=== PATIENT | female | born 1950 | race Hispanic/Latino ===

== ENCOUNTER → 2022-05-30 | Outpatient (CLI) | payer MEDICARE ==
[~2022-05-30] MED LIST: ATOR20TA65 PO; DAPA10TA PO; ESCI-8 PO; FINE10TA PO; GLIP1TAB5 PO; LISI40TA9 PO; VERA240T95 PO; VIT1CAPS47 PO
== END | disposition home or self-care (01) ==
LOC: RAH 13:00
PROVIDERS: ATTEND Orthopaedic Surgery
DX: M17.11 Unilateral primary osteoarthritis, right knee (principal); M25.761 Osteophyte, right knee; Z98.890 Other specified postprocedural states
CPT/HCPCS: 73700

== ENCOUNTER 2022-05-31 05:47 | Observation (INO) | payer MEDICARE ==
[2022-05-25 10:58] LABS: BASOPHILS % (AUTO) 0.6 % (0.0-5.0); EOSINOPHILS % (AUTO) 2.3 % (0.0-8.0); HEMATOCRIT 41.1 % (36-48); LYMPHOCYTES % (AUTO) 19.7 % (21.0-51.0); MEAN CORPUSCULAR HEMOGLOBIN 25.4 pg (27.0-33.0); MEAN CORPUSCULAR HGB CONC 30.2 g/dL (32.0-36.0); MONOCYTES % (AUTO) 6.1 % (3.0-13.0); NEUTROPHILS % (AUTO) 70.8 % (40.0-77.0); PLATELET COUNT (AUTO) 239 K/uL (130-400); RED BLOOD CELL COUNT(AUTO) 4.89 MIL/uL (4.00-5.50); RED CELL DISTRIBUTION WIDTH 14.6 % (11.0-15.5); WHITE BLOOD COUNT (AUTO) 7.9 K/uL (4.8-10.8)
[2022-05-25 11:04] LABS: CREATININE 1.3 mg/dL (0.5-1.5); POTASSIUM 5.8 mmol/L (3.5-5.1)
[2022-05-25 11:31] VITALS: BP 160/86
[~2022-05-31] VITALS: Ht 160 cm; Wt 87.8 kg
[2022-05-31] VITALS (28 sets, daily range): BP systolic 101–162; BP diastolic 49–75
[~2022-05-31 05:47] MED LIST changes: +LACTATED RINGERS 1000ML 1,000 ML IV SCH; +TRANEXAMIC ACID 1000MG/10ML ONE
[2022-05-31] MEDS: CEFAZOLIN SODIUM 1 GM VIAL IVPB SCH ×2 (06:00→08:52)
[2022-05-31 06:54] LABS: INR 0.93 (0.85-1.15); PROTHROMBIN TIME 9.8 SEC (9.6-11.6)
[2022-05-31 06:55] LABS: PARTIAL THROMBOPLASTIN TIME 29.3 SEC (26.3-35.5)
[2022-05-31] MEDS ORDERED: 0.9%NACL 1000ML 1,000 ML IV ONE (07:06)
[2022-05-31 07:27] LABS: CREATININE 1.3 mg/dL (0.5-1.5); POTASSIUM 5.5 mmol/L (3.5-5.1)
[2022-05-31] MEDS ORDERED: KCL 20 MEQ ERTAB PO PRN (08:00)
[2022-05-31] MEDS ORDERED: POTASSIUM CHLORIDE 20MEQ/100ML 100 ML IV PRN (08:00)
[2022-05-31] MEDS: METFORMIN HCL 500 MG TABLET PO SCH ×2 (08:00→17:00)
[2022-05-31] MEDS ORDERED: HYDROCODONE/ACETAMINOPHEN 5/325 MG TAB PO PRN (08:00)
[2022-05-31] MEDS ORDERED: POTASSIUM CHLORIDE 10% ELIXIR 20 MEQ/15 ML UDCUP PO PRN (08:00)
[2022-05-31] MEDS ORDERED: LIDOCAINE HCL-MPF 1% 2ML VIAL IV PRN (08:00)
[2022-05-31] MEDS: GLIPIZIDE 5 MG TABLET PO SCH ×2 (08:00→17:00)
[2022-05-31] MEDS ORDERED: ONDANSETRON 4MG INJ IVP PRN (08:00)
[2022-05-31] MEDS ORDERED: ONDANSETRON 4MG INJ ONE (08:09)
[2022-05-31] MEDS ORDERED: LIDOCAINE HCL-MPF 1% 5ML AMP IJ ONE (08:09)
[2022-05-31] MEDS ORDERED: EPHEDRINE SULFATE 50 MG/ML AMPULE ONE (08:09)
[2022-05-31] MEDS ORDERED: ROCURONIUM 10MG/1ML SYR 10 MG/ML ML ONE (08:09)
[2022-05-31] MEDS ORDERED: PHENYLEPHRINE HCL 10 MG/ML 1ML VIAL IV ONE (08:09)
[2022-05-31] MEDS ORDERED: GLYCOPYRROLATE 1 MG/5 ML SYRINGE ONE (08:09)
[2022-05-31] MEDS ORDERED: PROPOFOL 10 MG/ML 20ML VIAL IV ONE (08:09)
[2022-05-31] MEDS ORDERED: FENTANYL CITRATE PF 50 MCG/1 ML 2ML VIAL ONE ×3 (08:10→11:39)
[2022-05-31] MEDS: ***HM*** (Dapagliflozin Propanediol (Farxiga) 10 MG) PO SCH (09:00)
[2022-05-31] MEDS: FINERENONE 10 MG PO SCH (09:00)
[2022-05-31] MEDS: CITALOPRAM 20 MG TABLET PO SCH (09:00)
[2022-05-31] MEDS: LISINOPRIL 40 MG TABLET PO SCH (09:00)
[2022-05-31] MEDS: ASPIRIN 81 MG EC TAB PO SCH ×2 (09:00→21:06)
[2022-05-31] MEDS: POLYETHYLENE GLYCOL 3350 17 GM POWD.PACK PO SCH (09:00)
[2022-05-31] MEDS: ***HM***(Vit C/E/Zn/Coppr/Lutein/Zeaxan (Preservision Areds 2 Soft PO SCH ×2 (09:00→21:00)
[2022-05-31] MEDS: VERAPAMIL HCL 240 MG SRTAB PO SCH (09:00)
[2022-05-31] MEDS: FAMOTIDINE 20MG TAB PO SCH ×2 (09:00→21:06)
[2022-05-31] MEDS ORDERED: IBUPROFEN 800MG + NS 250ML IV SCH (11:00)
[2022-05-31] MEDS: INSULIN HUMULIN R 100 UNIT/ML 3ML SQ SCH ×3 (11:30→21:00)
[2022-05-31] MEDS ORDERED: MEPERIDINE-PF 25 MG/ML SYG ONE (12:00)
[2022-05-31] MEDS: TRANEXAMIC ACID 1000MG/10ML IV SCH ×2 (12:21→12:23)
[2022-05-31] MEDS: ACETAMINOPHEN 1,000 MG/100 ML VIAL IV SCH ×2 (12:24→18:02)
[2022-05-31] MEDS: CEFAZOLIN SODIUM 1 GM VIAL IVP SCH ×2 (13:20→21:06)
[2022-05-31] MEDS: MORPHINE 4 MG SYG IVP PRN (13:20)
[2022-05-31] MEDS: 0.9%NACL 1000ML 1,000 ML IV SCH ×2 (14:11→18:00)
[2022-05-31] MEDS ORDERED: ACETAMINOPHEN 1,000 MG/100 ML VIAL IV SCH (23:30)
[2022-05-31] MEDS ORDERED: 0.9% NACL 250ML 250 ML ONE (23:40)
[2022-06-01] MEDS ORDERED: IBUPROFEN 800MG + NS 250ML IV SCH
[2022-06-01 04:39] VITALS: BP 123/52
[2022-06-01 04:43] LABS: MEAN CORPUSCULAR HEMOGLOBIN 25.8 pg (27.0-33.0); MEAN CORPUSCULAR VOLUME 83.1 fL (79-99); RED BLOOD CELL COUNT(AUTO) 3.61 MIL/uL (4.00-5.50); RED CELL DISTRIBUTION WIDTH 14.7 % (11.0-15.5); WHITE BLOOD COUNT (AUTO) 9.7 K/uL (4.8-10.8)
[2022-06-01 04:57] LABS: CREATININE 1.4 mg/dL (0.5-1.5); POTASSIUM 4.8 mmol/L (3.5-5.1)
[2022-06-01] MEDS: HYDROCODONE/ACETAMINOPHEN 10/325 MG TAB PO PRN ×3 (05:47→18:04)
[2022-06-01] MEDS: INSULIN HUMULIN R 100 UNIT/ML 3ML SQ SCH ×4 (05:55→20:06)
[2022-06-01] MEDS: 0.9%NACL 1000ML 1,000 ML IV SCH ×2 (06:47→07:34)
[2022-06-01 07:46] VITALS: BP 126/54
[2022-06-01] MEDS ORDERED: ROPIVICAINE 250MG+KETOROLAC 15MG+EPINEPHRINE 0.3+CLONIDINE 80 IV PRN ×5 (08:00)
[2022-06-01] MEDS: METFORMIN HCL 500 MG TABLET PO SCH ×2 (08:00→18:03)
[2022-06-01] MEDS: GLIPIZIDE 5 MG TABLET PO SCH ×2 (08:00→18:03)
[2022-06-01] MEDS: POLYETHYLENE GLYCOL 3350 17 GM POWD.PACK PO SCH (08:39)
[2022-06-01] MEDS: FAMOTIDINE 20MG TAB PO SCH ×2 (08:40→20:00)
[2022-06-01] MEDS: ASPIRIN 81 MG EC TAB PO SCH ×2 (08:48→20:00)
[2022-06-01] MEDS: VERAPAMIL HCL 240 MG SRTAB PO SCH (08:49)
[2022-06-01] MEDS: ***HM*** (Dapagliflozin Propanediol (Farxiga) 10 MG) PO SCH (08:49)
[2022-06-01] MEDS: FINERENONE 10 MG PO SCH (08:49)
[2022-06-01] MEDS: CITALOPRAM 20 MG TABLET PO SCH (08:49)
[2022-06-01] MEDS: ***HM***(Vit C/E/Zn/Coppr/Lutein/Zeaxan (Preservision Areds 2 Soft PO SCH ×2 (08:50→20:02)
[2022-06-01] MEDS: LISINOPRIL 40 MG TABLET PO SCH (08:52)
[2022-06-01 11:24] VITALS: BP 109/72
[2022-06-01] MEDS: MORPHINE 4 MG SYG IVP PRN (13:05)
[2022-06-01 16:47] VITALS: BP 114/44
[2022-06-01 19:04] VITALS: BP 138/63
[2022-06-01] MEDS: FERROUS GLUCONATE 324 TABLET PO SCH (20:00)
[2022-06-01 23:24] VITALS: BP 141/71
[2022-06-02 04:15] VITALS: BP 147/65
[2022-06-02] MEDS: HYDROCODONE/ACETAMINOPHEN 10/325 MG TAB PO PRN ×2 (04:27→08:53)
[2022-06-02] MEDS: INSULIN HUMULIN R 100 UNIT/ML 3ML SQ SCH (06:05)
[2022-06-02 07:56] VITALS: BP 146/66
[2022-06-02] MEDS: FAMOTIDINE 20MG TAB PO SCH (08:58)
[2022-06-02] MEDS: GLIPIZIDE 5 MG TABLET PO SCH (08:58)
[2022-06-02] MEDS: FERROUS GLUCONATE 324 TABLET PO SCH (08:59)
[2022-06-02] MEDS: CITALOPRAM 20 MG TABLET PO SCH (08:59)
[2022-06-02] MEDS: LISINOPRIL 40 MG TABLET PO SCH (08:59)
[2022-06-02] MEDS: METFORMIN HCL 500 MG TABLET PO SCH (08:59)
[2022-06-02] MEDS: ***HM***(Vit C/E/Zn/Coppr/Lutein/Zeaxan (Preservision Areds 2 Soft PO SCH (09:00)
[2022-06-02] MEDS: POLYETHYLENE GLYCOL 3350 17 GM POWD.PACK PO SCH (09:00)
[2022-06-02] MEDS: FINERENONE 10 MG PO SCH (09:00)
[2022-06-02] MEDS: VERAPAMIL HCL 240 MG SRTAB PO SCH (09:00)
[2022-06-02] MEDS: ***HM*** (Dapagliflozin Propanediol (Farxiga) 10 MG) PO SCH (09:00)
[2022-06-02] MEDS: ASPIRIN 81 MG EC TAB PO SCH (09:03)
[2022-06-02 11:38] VITALS: BP 125/50
[2022-06-03] MEDS ORDERED: BISACODYL 10 MG SUPP.RECT RC PRN (08:00)
[2022-06-03] MEDS ORDERED: ROPIVACAINE 0.5% 5MG/ML 30ML IJ ONE (09:53)
== END 2022-06-02 14:30 | disposition home or self-care (01) ==
LOC: DAH 05:47 → DAHIP 05:48 → 4BH 13:28
PROVIDERS: ADMIT Orthopaedic Surgery; ATTEND Orthopaedic Surgery
DX: M17.31 Unilateral post-traumatic osteoarthritis, right knee (principal); Z20.822 Contact with and (suspected) exposure to COVID-19; I10 Essential (primary) hypertension; E11.9 Type 2 diabetes mellitus without complications; E66.9 Obesity, unspecified; J45.909 Unspecified asthma, uncomplicated; Z79.899 Other long term (current) drug therapy
CPT/HCPCS: 80048 ×3; 85025; 87426; 36415 ×3; 93005; 27447; 0055T; 96376 ×2; 96365; 96366 ×2; 96375; 85610; 85730; 82948 ×10; 97161; 97530 ×2; 97039 ×3; 85027; 97116 ×3; A4649 ×5; J1741 ×4; C1776 ×4; G0378 ×49; A4663; J7030 ×3; J3010 ×3; J0690 ×3; J3490 ×5; J2704; J2405; J2270 ×2; J2175; J2370; J7050; A6206; G0168; A6255; A4615; A5120; A4215; A4223; A4222; A4221; J2795

== ENCOUNTER 2022-07-19 06:05 | Day surgery (SDC) | payer MEDICARE ==
[2022-07-15 09:20] LABS: BASOPHILS % (AUTO) 0.6 % (0.0-5.0); HEMATOCRIT 37.6 % (36-48); LYMPHOCYTES % (AUTO) 20.6 % (21.0-51.0); MEAN CORPUSCULAR HEMOGLOBIN 25.5 pg (27.0-33.0); MEAN CORPUSCULAR HGB CONC 30.6 g/dL (32.0-36.0); MEAN CORPUSCULAR VOLUME 83.4 fL (79-99); NEUTROPHILS % (AUTO) 69.5 % (40.0-77.0); PLATELET COUNT (AUTO) 261 K/uL (130-400); RED BLOOD CELL COUNT(AUTO) 4.51 MIL/uL (4.00-5.50); RED CELL DISTRIBUTION WIDTH 14.9 % (11.0-15.5); WHITE BLOOD COUNT (AUTO) 6.4 K/uL (4.8-10.8)
[2022-07-15 09:24] VITALS: BP 170/80
[2022-07-19] VITALS (13 sets, daily range): BP systolic 131–146; BP diastolic 49–72
[~2022-07-19] VITALS: Ht 157.5 cm; Wt 86.6 kg
[~2022-07-19 06:05] MED LIST changes: +FERR-82 PO; -LACTATED RINGERS 1000ML 1,000 ML IV SCH; -TRANEXAMIC ACID 1000MG/10ML ONE
[2022-07-19] MEDS ORDERED: 0.9%NACL 1000ML 1,000 ML IV ONE (06:25)
[2022-07-19 06:47] LABS: CREATININE 1.3 mg/dL (0.5-1.5); POTASSIUM 5.2 mmol/L (3.5-5.1)
[2022-07-19] MEDS ORDERED: FAMOTIDINE 20MG VIAL IV ONE (07:00)
[2022-07-19] MEDS ORDERED: PHENYLEPHRINE HCL 10 MG/ML 1ML VIAL IV ONE (07:06)
[2022-07-19] MEDS ORDERED: LIDOCAINE PF 100MG/5ML (2%) SYRINGE 5ML ONE (07:16)
[2022-07-19] MEDS ORDERED: PROPOFOL 10 MG/ML 20ML VIAL IV ONE (07:16)
== END 2022-07-19 08:45 | disposition home or self-care (01) ==
LOC: DAH 06:05
PROVIDERS: ATTEND Orthopaedic Surgery
DX: M24.561 Contracture, right knee (principal); T81.89XA Other complications of procedures, not elsewhere classified, initial encounter; E11.9 Type 2 diabetes mellitus without complications; I10 Essential (primary) hypertension; J45.909 Unspecified asthma, uncomplicated; Y83.8 Other surgical procedures as the cause of abnormal reaction of the patient, or of later complication, without mention of misadventure at the time of the procedure; Z20.822 Contact with and (suspected) exposure to COVID-19; Z79.899 Other long term (current) drug therapy; Z79.84 Long term (current) use of oral hypoglycemic drugs; Z98.890 Other specified postprocedural states
CPT/HCPCS: 85025; 87426; 36415 ×2; 93005; 27570; 80048; 82948 ×2; A6260; A4663; J7030 ×2; A4606; J3490; J2001; J2704; J2370; A4215; A4223; A4222; A4221

== ENCOUNTER 2024-07-15 15:01 | Emergency (ER) | payer MEDICARE ==
[~2024-07-15] VITALS: Ht 154.9 cm; Wt 75.3 kg
[2024-07-15 15:21] VITALS: BP 187/79
[2024-07-15 15:25] VITALS: PULSE 64; RESP 17; TEMP 97.8; O2SAT 100
--- NOTE | 2024-07-15 17:17 | HMCIMG ---
BILATERAL HIP, INCLUDING AP PELVIS, RADIOGRAPHS - 2 VIEWS INDICATION: Pain COMPARISON: None FINDINGS/IMPRESSION: No evidence for right or left hip joint fracture or subluxation. Both femoral heads are well formed without osteochondral erosion or radiographic evidence for avascular necrosis. Indeterminate-age mild right pubic symphysis cortical deformity for which correlation for point tenderness is recommended.
--- NOTE | 2024-07-15 17:18 | HMCIMG ---
RIGHT HAND RADIOGRAPHS - 3 VIEWS INDICATION: Fall COMPARISON: None FINDINGS: AP, lateral, and oblique views. Nondisplaced oblique fracture through the fifth metacarpal shaft. Scaphoid bone is intact. Carpal alignment and ulnar variance is within normal limits. Mild arterial wall calcific plaque. IMPRESSION: Nondisplaced oblique fracture through the fifth metacarpal shaft.
--- NOTE | 2024-07-15 17:48 | ERN ---
General Chief Complaint: Lower Extremity Pain/Injury Stated Complaint: RT LEG PAIN Time Seen by MD: 15:03 Source: patient History of Present Illness Initial Comments PATIENT IS A 73-YEAR-OLD FEMALE COMING IN AFTER SHE FELL DOWN. PER PATIENT SHE FELL DOWN EARLIER TODAY IS COMPLAINING OF RIGHT HIP LEFT HAND PAIN. SHE STATES THAT SHE SLIPPED DOWN THIS IS WHAT CAUSED HER TO FALL. Allergies: Coded Allergies: No Known Drug Allergies (Unverified Allergy, Unknown, 05/25/22) Home Meds Reported Medications Ferrous Sulfate (Iron) 325 Mg Tablet, 325 MG PO BID, TAB 07/15/22 Escitalopram Oxalate (Escitalopram Oxalate) 10 Mg Tablet, 10 MG PO AM, TAB 05/25/22 Atorvastatin Calcium (Atorvastatin Calcium) 20 Mg Tablet, 20 MG PO HS, TAB 05/25/22 Verapamil HCl (Verapamil ER) 240 Mg Tablet.er, 240 MG PO AM, TAB 05/25/22 Lisinopril (Lisinopril) 40 Mg Tablet, 40 MG PO AM, TAB 05/25/22 Glipizide/Metformin HCl (Glipizide-Metformin 2.5-500 mg) 1 Each Tablet, 2 EACH PO BID, TAB 05/25/22 Finerenone (Kerendia) 10 Mg Tablet, 20 MG PO AM, TAB 05/25/22 Dapagliflozin Propanediol (Farxiga) 10 Mg Tablet, 10 MG PO AM, TAB 05/25/22 Vit C/E/Zn/Coppr/Lutein/Zeaxan (Preservision Areds 2 Softgel) 1 Each Capsule, 1 EACH PO BID, CAP 05/25/22 Past Medical History Past Medical History: Diabetes-Type II, High Cholesterol, Hypertension Past Surgical History: Other Surgical History Other: RT KNEE ROS Dictation CONSTITUTIONAL: NO CHILLS, NO FEVER, NO WEAKNESS, NO DIAPHORESIS, NO MALAISE. HEAD/FACE: NO SIGNS OF TRAUMA. EENT: NO EYE PAIN, NO BLURRED VISION, NO TEARING, NO DOUBLE VISION, NO EAR PAIN, NO EAR DISCHARGE, NO NOSE PAIN, NO NASAL CONGESTION, NO THROAT PAIN, NO THROAT SWELLING, NO MOUTH PAIN. RESPIRATORY: NO COUGH, NO ORTHOPNEA, NO SOB, NO STRIDOR, NO WHEEZING. CARDIOVASCULAR: NO CHEST PAIN, NO EDEMA, NO PALPITATIONS, NO SYNCOPE. GASTROINTESTINAL/ABDOMINAL: NO ABDOMINAL PAIN, NO CONSTIPATION, NO DIARRHEA, NO NAUSEA, NO VOMITING. GENITOURINARY: NO ABNORMAL DISCHARGE, NO DYSURIA, NO FREQUENT URINATION, NO HEMATURIA. NO COMPLAINTS OF PAIN IN THE GENITALS. MUSCULOSKELETAL: NO BACK PAIN, NO GOUT, JOINT PAIN, JOINT SWELLING, MUSCLE PAIN, NO MUSCLE STIFFNESS, NO NECK PAIN. INTEGUMENTARY: NO CHANGE IN COLOR, NO CHANGE IN HAIR/NAILS, NO DRYNESS, NO LESION, NO LUMPS, NO RASH. NEUROLOGICAL/PSYCH: NO ANXIETY, NOT DEPRESSED, NO EMOTIONAL PROBLEM, NO HEADACHE, NO NUMBNESS, NO PRE-EXISTING DEFICIT, NO HISTORY OF SEIZURES, NO TREMORS, NO WEAKNESS. HEMATOLOGIC/LYMPHATIC: NOT ANEMIC, NO HISTORY OF BLOOD CLOTS, NO APPARENT BLEEDING, NO BRUISING, GLANDS NOT SWOLLEN. ALL SYSTEMS NEGATIVE, EXCEPT NOTED. Physical Exam Physical Exam Dictation VITAL SIGNS: REVIEWED. GENERAL APPEARANCE: ALERT, ORIENTED X3, NO ACUTE DISTRESS, OBESE. HEAD AND FACE: NON-TRAUMATIC. EYES: PERRL, PINK CONJUNCTIVAS, EYELID NO TRAUMA, ANTERIOR CHAMBER CLEAR. EARS: PINNAS INTACT AND NO SIGNS OF TRAUMA OR ERYTHEMA. EAR CANALS CLEAR AND NO DISCHARGE. TMS NO ERYTHEMA. NOSE: NO DISCHARGE, NO BLEEDING. OROPHARYNX: MOUTH NORMAL, TEETH NO CARIES, TONGUE PINK. PHARYNX CLEAR, NO ERYTHEMA. TONSILS NO EXUDATES, NO ABSCESSES NOTED. MUCOUS MEMBRANE MOIST. NECK: SUPPLE, NON-TENDER, NO THYROMEGALY, NO MASSES, NO JVD, NO BRUITS. BREAST: DEFERRED. CHEST: NO TENDERNESS, NO CREPITUS, NO PARADOXICAL MOVEMENT, NO RETRACTIONS. LUNGS: CLEAR, WELL-VENTILATED, SYMMETRIC, NO RALES, NO WHEEZING, NO RHONCHI, NO STRIDOR, GOOD BREATH SOUNDS BILATERALLY. HEART: REGULAR RATE, REGULAR RHYTHM, NO MURMUR, NO GALLOPS. VASCULAR: NO PERIPHERAL EDEMA. ABDOMEN: SOFT, POSITIVE BOWEL SOUNDS, NONDISTENDED, NO GUARDING, NONTENDER, NO REBOUND, NO MASSES NO HEPATOMEGALY, NO SPLENOMEGALY, NO BYRNE'S SIGN, NO HERNIAS. RECTAL: DEFERRED. GENITAL: DEFERRED. NEUROLOGICAL: NORMAL SPEECH, GROSS MOTOR FUNCTION INTACT, GROSS SENSORY FUNCTION INTACT. MUSCULOSKELETAL: NECK NONTENDER, FULL RANGE OF MOTION, BACK NONTENDER, FULL RANGE OF MOTION. EXTREMITIES: NONTENDER, FULL RANGE OF MOTION. SKIN: COLOR PINK, DRY, NO TURGOR, NO RASH, NO LACERATIONS, NO ABRASIONS, NO CONTUSIONS. LYMPHATICS: DEFERRED. Results Laboratory and Microbiology Labs Reviewed?: Yes EKG/XRAY/US/CT/MRI X-RAY Comment IMAGING REPORT Signed PATIENT: JEAN-PIERRE OSHEA MR#: [id number] : 1950 SEX: F AGE: 73 LOCATION: [facility] ORDER 12 STATUS: REG ER [facility] REPORT#: [id number] SERVICE 11 REASON: fall ORDERING PHYSICIAN: BENITO PENA MD PROCEDURE: HIPS B 3V - HIP BILAT 3-4VW BILATERAL HIP, INCLUDING AP PELVIS, RADIOGRAPHS - 2 VIEWS INDICATION: Pain COMPARISON: None FINDINGS/IMPRESSION: No evidence for right or left hip joint fracture or subluxation. Both femoral heads are well formed without osteochondral erosion or radiographic evidence for avascular necrosis. Indeterminate-age mild right pubic symphysis cortical deformity for which correlation for point tenderness is recommended. DICTATED BY: KIERSTEN PASCUAL MD DATE: 07/15/241712 ELECTRONICALLY SIGNED BY: KIERSTEN PASCUAL MD DATE: 07/15/241716 [facility] [address] [address] IMAGING REPORT Signed PATIENT: JEAN-PIERRE OSHEA MR#: [id number] : 1950 SEX: F AGE: 73 LOCATION: [facility] ORDER 12 STATUS: REG ER REPORT#: [id number] SERVICE 11 REASON: fall ORDERING PHYSICIAN: BENITO PENA MD PROCEDURE: HAND 3V RT - HAND 3+VWS RT RIGHT HAND RADIOGRAPHS - 3 VIEWS INDICATION: Fall COMPARISON: None FINDINGS: AP, lateral, and oblique views. Nondisplaced oblique fracture through the fifth metacarpal shaft. Scaphoid bone is intact. Carpal alignment and ulnar variance is within normal limits. Mild arterial wall calcific plaque. IMPRESSION: Nondisplaced oblique fracture through the fifth metacarpal shaft. DICTATED BY: KIERSTEN PASCUAL MD DATE: 07/15/241713 ELECTRONICALLY SIGNED BY: KIERSTEN PASCUAL MD DATE: 07/15/241717 CT Scan Comment [place] [id number] [place] [address] IMAGING REPORT Signed PATIENT: JEAN-PIERRE OSHEA MR#: [id number] : 1950 SEX: F AGE: 73 LOCATION: [facility] ORDER 58 STATUS: REG ER REPORT#: [id number] SERVICE 57 REASON: right lower extremity / hip pain ORDERING PHYSICIAN: BENITO PENA MD PROCEDURE: LOW EXT WO - CT LOW EXT W/O CONTRAST CT RIGHT LOWER EXTREMITY WITHOUT CONTRAST INDICATION: Right hip pain after fall COMPARISON: None TECHNIQUE: Contiguous axial computed tomography imaging using 2 mm slice thickness was obtained through the right hip without contrast material. Coronal and sagittal reconstructions were also obtained. CT was performed with one or more of the following dose reduction techniques: Automated exposure control, adjustment of the mA and/or kV according to patient size, or use of iterative reconstruction technique. FINDINGS/IMPRESSION: Normal right hip joint without fracture or dislocation. Nondisplaced slightly comminuted right pubic symphysis fracture deformity is incompletely imaged. DICTATED BY: KIERSTEN PASCUAL MD DATE: 07/15/241803 ELECTRONICALLY SIGNED BY: KIERSTEN PASCUAL MD DATE: 07/15/241808 MDM MDM: DIFFERENTIAL DIAGNOSIS: METACARPAL FRACTURE, HIP FRACTURE, pubic symphysis fracture RATIONALE: TESTS CONSIDERED AND ORDERED SECONDARY TO SHARED DECISION MAKING INCLUDE: PREVIOUS OUTSIDE RECORDS REVIEWED: OLD ER VISITS. RISK OF COMPLICATION AND/OR MORBIDITY OR MORTALITY OF PATIENT MANAGEMENT: NONE Patient is a 73-year-old female status post fall. Per patient she was being seen by her PCP ordered imaging studies but they were in a radiating so she decided to come in for further evaluation. X-ray disclose the 5th metacarpal fracture as well as nondisplaced pubic symphysis fracture. Patient will be discharged in stable condition with those diagnosis. ED Course Orders Procedure Category Date Status Time Hand 3+Vws Rt RAD 07/15/24 Resulted 15:12 Hip Bilat 3-4vw RAD 07/15/24 Resulted 15:12 Ct Low Ext W/O CT 07/15/24 Resulted Contrast 16:58 Vital Signs Date Time Temp Pulse Resp B/P (MAP) Pulse Ox O2 Delivery O2 Flow Rate FiO2 07/15/24 15:25 97.9 64 17 100 Room Air* 0 21 07/15/24 15:21 97.9 64 18 187/79 100 Room Air 0 DX & DISP Disposition: Discharge Departure Impression: Primary Impression: Fracture of fifth metacarpal bone Additional Impression: Closed fracture of symphysis pubis Condition: Stable Scripts Acetaminophen with Codeine (Acetaminophen-Cod #3 Tablet) 300 Mg-30 Mg Tablet 1 TAB PO [id number] PRN for pain for 3 Days, #6 TAB 0 Refills Prov: BENITO PENA MD 07/15/24 Additional Instructions: FOLLOW-UP WITH PRIMARY CARE PROVIDER IN 1 TO 2 DAYS. TAKE MEDICATIONS DIRECTED HERE IN THE EMERGENCY ROOM. OKAY TO CONTINUE HOME MEDICATIONS UNLESS OTHERWISE DISCUSSED DURING YOUR VISIT IN THE EMERGENCY ROOM TODAY. RETURN TO YOUR NEAREST EMERGENCY ROOM IF SYMPTOMS WORSEN OR IF THERE IS NO IMPROVEMENT. CALL 911 IF YOU NEED IMMEDIATE ASSISTANCE. TAKE TYLENOL [id number] NEEDED AND IF NO CONTRAINDICATIONS ARE PRESENT. INCREASE ORAL HYDRATION. A WOUND CULTURE OR URINE CULTURE WAS ORDERED HERE IN THE EMERGENCY ROOM DEPARTMENT PLEASE FOLLOW-UP WITH PRIMARY CARE PROVIDER AND ADVISE THEM TO GET REPEAT PORTS FROM OUR FACILITY. IF YOU HAD ANY PHAM WRAP/SPLINTS THAT WERE APPLIED HERE, PLEASE DO NOT REMOVE THEM UNTIL YOU SEE YOUR PRIMARY CARE OR SPECIALTY. Referrals: Referrals: ALEJA SAWYER MD (PCP) Time of Disposition: 18:19 BENITO PENA MD Jul 15, 2024 17:48
--- NOTE | 2024-07-15 18:09 | HMCIMG ---
CT RIGHT LOWER EXTREMITY WITHOUT CONTRAST INDICATION: Right hip pain after fall COMPARISON: None TECHNIQUE: Contiguous axial computed tomography imaging using 2 mm slice thickness was obtained through the right hip without contrast material. Coronal and sagittal reconstructions were also obtained. CT was performed with one or more of the following dose reduction techniques: Automated exposure control, adjustment of the mA and/or kV according to patient size, or use of iterative reconstruction technique. FINDINGS/IMPRESSION: Normal right hip joint without fracture or dislocation. Nondisplaced slightly comminuted right pubic symphysis fracture deformity is incompletely imaged.
[2024-07-15] MEDS ORDERED: ACET-2079 PO ×2 (18:20→20:53)
== END 2024-07-15 18:39 | disposition home or self-care (01) ==
LOC: EDH 15:01
DX: S62.326A Displaced fracture of shaft of fifth metacarpal bone, right hand, initial encounter for closed fracture (principal); S32.501A Unspecified fracture of right pubis, initial encounter for closed fracture; E11.9 Type 2 diabetes mellitus without complications; E78.00 Pure hypercholesterolemia, unspecified; I10 Essential (primary) hypertension; Z79.84 Long term (current) use of oral hypoglycemic drugs; W01.0XXA Fall on same level from slipping, tripping and stumbling without subsequent striking against object, initial encounter; Y93.89 Activity, other specified; Y92.89 Other specified places as the place of occurrence of the external cause; Y99.8 Other external cause status
CPT/HCPCS: 29125; 73130; 73522; 73700; 99284